=== PATIENT | female | born 1990 | race African-American/Black ===

== ENCOUNTER 2018-10-20 23:13 | Emergency (ER) | payer BC, MEDICAID ==
[2018-10-21] MEDS ORDERED: MORPHINE SULFATE IR 15 MG TABLET PO ONE (02:20)
[2018-10-21] MEDS ORDERED: ACETAMINOPHEN 325 MG TABLET PO ONE (02:20)
[2018-10-21] MEDS ORDERED: IBUPROFEN 600 MG TABLET PO ONE (02:20)
[2018-10-21] MEDS ORDERED: SULFAMETHOXAZOLE/TRIMETHOPRIM 800-160 MG TABLET PO ONE (02:20)
--- NOTE | 2018-10-21 02:22 | ER Document Report ---
ED General - General Chief Complaint: Breast Problem Stated Complaint: UNDER ARM PAIN Time Seen by Provider: 10/21/18 00:52 Notes: Patient is a 28-year-old female without chronic medical problems presents with 3 days of progressive worsening swelling and pain to her left axilla as well as 1- 2 days of swelling and pain in her left breast. Describes the left axilla as being a fluctuant area that appears to be an abscess by her report. There is a dull, throbbing, constant pain, worsened by touching the area. She states it has started to drain purulent material in the last 24 hours. Nothing improves or worsens her symptoms. Patient states that she is also concerned about what appears to be a left breast abscess by her report. She notes an area of swelling and pain to the inferior portion of her left breast. No history of similar symptoms to the above. Has not seen her general physician regarding today's concerns. No fever or constitutional symptoms. TRAVEL OUTSIDE OF THE [place] IN LAST 30 DAYS: No - Related Data Allergies/Adverse Reactions: No Known Allergies Allergy (Verified 06/22/16 10:10) Past Medical History - General Information source: Patient - Social History Smoking Status: Never Smoker Frequency of alcohol use: None Drug Abuse: None Family History: Reviewed & Not Pertinent - Past Medical History Cardiac Medical History: Denies: Hx Hypertension, Hx Pulmonary Embolism, Hx Heart Murmur Pulmonary Medical History: Denies: Hx Asthma, Hx Sleep Apnea, Hx Tuberculosis Neurological Medical History: Denies: Hx Cerebrovascular Accident, Hx Seizures Endocrine Medical History: Denies: Hx Hyperthyroidism, Hx Hypothyroidism Renal/ Medical History: Denies: Hx Kidney Stones, Hx Ovarian Cysts, Hx Pelvic Inflammatory Disease Malignancy Medical History: Denies: Hx Breast Cancer, Hx Cervical Cancer, Hx Ovarian Cancer GI Medical History: Denies: Hx Gastroesophageal Reflux Disease, Hx Hiatal Hernia, Hx Ulcer Musculoskeletal Medical History: Denies Hx Fibromyalgia Psychiatric Medical History: Denies: Hx Bipolar Disorder, Hx Depression, Hx Post Traumatic Stress Disorder, Hx Schizophrenia Traumatic Medical History: Denies: Hx Fractures Infectious Medical History: Denies: Hx HIV, Hx MRSA Past Surgical History: Reports: Hx Breast Surgery - LEFT BREAST ABSCESS REMOVAL, Hx Section - x 3 - Immunizations Hx Diphtheria, Pertussis, Tetanus Vaccination: Yes Review of Systems - Review of Systems Notes: Constitutional: Negative for fever. HENT: Negative for sore throat. Eyes: Negative for visual changes. Cardiovascular: Negative for chest pain. Respiratory: Negative for shortness of breath. Gastrointestinal: Negative for abdominal pain, vomiting or diarrhea. Genitourinary: Negative for dysuria. Musculoskeletal: Negative for back pain. Skin: Positive for left axillary abscess Neurological: Negative for headaches, weakness or numbness. 10 point ROS negative except as marked above and in HPI. Physical Exam - Vital signs Vitals: Temp Pulse Resp BP Pulse Ox 99.0 F 106 H 18 104/68 100 10/20/18 23:28 10/20/18 23:28 10/20/18 23:28 10/20/18 23:28 10/20/18 23:28 Interpretation: Tachycardic Notes: PHYSICAL EXAMINATION: GENERAL: Appears moderately uncomfortable but in no acute distress HEAD: Atraumatic, normocephalic. EYES: Pupils equal round and reactive to light, extraocular movements intact, sclera anicteric, conjunctiva are normal. ENT: nares patent, oropharynx clear without exudates. Moderate dry mucous membranes. NECK: Normal range of motion, supple without lymphadenopathy LUNGS: Breath sounds clear to auscultation bilaterally and equal. No wheezes rales or rhonchi. HEART: Regular rate and rhythm without murmurs Breast exam: There is a 2 x 3 centimeter firm, tender, mobile lump in the inferior left breast ABDOMEN: Soft, nontender, normoactive bowel sounds. No guarding, no rebound. No masses appreciated. EXTREMITIES: Normal range of motion, no pitting or edema. No cyanosis. NEUROLOGICAL: No focal neurological deficits. Moves all extremities spontaneo usly and on command. PSYCH: Normal mood, normal affect. SKIN: Warm, Dry, normal turgor, 1 x 1 cm abscess in the left axilla Course - Re-evaluation Re-evalutation: 10/21/18 02:22 Patient presents with a left axillary abscess. This was incised and drained without complication. Patient's been started on trimethoprim sulfamethoxazole. No fever or constitutional symptoms. No indication for labs. Has a history of the same. The patient is also complaining of left breast swelling and pain. There is a firm, mobile, tender 2 x 3 cm lump to the area. No fluctuance. Does not be appear to be immediately consistent with a breast abscess. Will obtain a breast ultrasound to further clarify. 10/21/18 03:40 Breast ultrasound does not provide immediate clarification, broad differential although no drainable component. I have informed the patient of the ultrasound findings, need for outpatient follow-up for consideration of biopsy and or mammography. At this time will discharge with return precautions and follow-up recommendations. Verbal discharge instructions given a the bedside and opportunity for questions given. Medication warnings reviewed. Patient is in agreement with this plan and has verbalized understanding of return precautions and the need for primary care follow-up in the next 24-72 hours. - Vital Signs Vital signs: Temp Pulse Resp BP Pulse Ox 99.0 F 106 H 18 104/68 100 10/20/18 23:28 10/20/18 23:28 10/20/18 23:28 10/20/18 23:28 10/20/18 23:28 - Diagnostic Test Radiology reviewed: Reports reviewed Procedures - Incision and Drainage Left axilla Type: Simple Anesthetic type: 1% Lidocaine Blade size: 11 I&D procedure: Betadine prep applied Incision Method: Incision made by scalpel Amount/type of drainage: 5 cc purulent drainage Discharge - Discharge Clinical Impression: Abscess of left axilla, Left breast mass Condition: Good Disposition: HOME, SELF-CARE Additional Instructions: You were seen for an abscess that required drainage. Please clean this area with soap and water twice daily and apply a topical antibiotic. Dress the area after each cleaning. Please return if you develop fever, vomiting, the pain at the site worsens, you notice spreading redness from the area, or you have any other symptoms that are concerning to you. I have included the report from your ultrasound today. The cause of swelling in your breast is uncertain and the ultrasound does not provide a clear cause. You need to follow-up very closely with your outpatient [facility] or general physician for consideration of mammography of your breast and or biopsy of this area. Please do not ignore this area of swelling. Prescriptions: Sulfamethoxazole/Trimethoprim [Bactrim Ds Tablet] 2 tab PO BID #28 tablet Referrals: MELE HUTCHINS MD [Primary Care Provider] - Follow up tomorrow
--- NOTE | 2018-10-21 03:27 | RADIOLOGY REPORT (SQ) ---
EXAM DESCRIPTION: US BREAST UNILATERAL LIMITED COMPLETED DATE/TME: 10/21/2018 02:19 CLINICAL HISTORY: 28 years Female, left breast swelling, pain Comparison: None. LIMITATIONS: None. FINDINGS: Targeted sonogram in the area of palpable abnormality, 6:00 position of the left breast 1-2 cm from the nipple demonstrates a 3.6 x 1.8 x 4.3 cm hypoechoic heterogeneous poorly defined lesion with mild vascularity. No drainable component discerned. IMPRESSION: Indeterminate 4.3 cm lesion of the left breast corresponds to palpable abnormality. Differential etiologies include infectious, inflammatory, and neoplastic processes. If puerperal mastitis is clinically suspected, consider punch biopsy to exclude inflammatory carcinoma if symptoms persist after a two week course of appropriate antibiotics. Else, bilateral diagnostic mammogram recommended.
[2018-10-21 03:56] VITALS: BP 123/75
== END 2018-10-21 03:56 | disposition home or self-care (01) ==
LOC: ER 23:13
DX: L02.412 Cutaneous abscess of left axilla (principal); N63.0 Unspecified lump in unspecified breast; N64.4 Mastodynia
CPT/HCPCS: 76642; 99283

== ENCOUNTER 2019-07-24 15:28 | Emergency (ER) | payer BC, MEDICAID ==
--- NOTE | 2019-07-24 16:07 | ER Document Report ---
ED Medical Screen (RME) - General Chief Complaint: Breathing Difficulty Stated Complaint: DIFFICULTY BREATHING Time Seen by Provider: 07/24/19 16:05 Mode of Arrival: Wheelchair Information source: Patient Notes: Patient presents complaining of right-sided chest pain for the past 3 days with shortness of breath that started today. Patient states pain initially started to the right thoracic area and radiated around to the right side of her chest. Patient reports mild cough. No significant medical history. No family history of early cardiac disease. I have greeted and performed a rapid initial assessment of this patient. A comprehensive ED assessment and evaluation of the patient, analysis of test results and completion of the medical decision making process will be conducted by additional ED providers. TRAVEL OUTSIDE OF THE [place] IN LAST 30 DAYS: No - Related Data Allergies/Adverse Reactions: No Known Allergies Allergy (Verified 07/24/19 16:02) Past Medical History - Past Medical History Cardiac Medical History: Denies: Hx Hypertension, Hx Pulmonary Embolism, Hx Heart Murmur Pulmonary Medical History: Denies: Hx Asthma, Hx Sleep Apnea, Hx Tuberculosis Neurological Medical History: Denies: Hx Cerebrovascular Accident, Hx Seizures Endocrine Medical History: Denies: Hx Hyperthyroidism, Hx Hypothyroidism Renal/ Medical History: Denies: Hx Kidney Stones, Hx Ovarian Cysts, Hx Pelvic Inflammatory Disease Malignancy Medical History: Denies: Hx Breast Cancer, Hx Cervical Cancer, Hx Ovarian Cancer GI Medical History: Denies: Hx Gastroesophageal Reflux Disease, Hx Hiatal Hernia, Hx Ulcer Musculoskeltal Medical History: Denies Hx Fibromyalgia Psychiatric Medical History: Denies: Hx Bipolar Disorder, Hx Depression, Hx Post Traumatic Stress Disorder, Hx Schizophrenia Traumatic Medical History: Denies: Hx Fractures Infectious Medical History: Denies: Hx HIV, Hx MRSA Past Surgical History: Reports: Hx Breast Surgery - LEFT BREAST ABSCESS REMOVAL, Hx Section - x 3 - Immunizations Hx Diphtheria, Pertussis, Tetanus Vaccination: Yes Physical Exam - Vital signs Vitals: Temp Pulse Resp BP Pulse Ox 98.4 F 89 18 127/64 H 99 07/24/19 15:51 07/24/19 15:51 07/24/19 15:51 07/24/19 15:51 07/24/19 15:51 - General General appearance: Alert Notes: Right lower anterior rib tenderness pain with movement, tenderness increases with deep inspiration, breath sounds clear Course - Vital Signs Vital signs: Temp Pulse Resp BP Pulse Ox 98.4 F 89 18 127/64 H 99 07/24/19 15:51 07/24/19 15:51 07/24/19 15:51 07/24/19 15:51 07/24/19 15:51
--- NOTE | 2019-07-24 16:30 | RADIOLOGY REPORT (SQ) ---
EXAM DESCRIPTION: CHEST 2 VIEWS COMPLETED DATE/TIME: 07/24/2019 4:17 pm REASON FOR STUDY: R side cp COMPARISON: 06/01/2013 EXAM PARAMETERS: NUMBER OF VIEWS: two views TECHNIQUE: Digital Frontal and Lateral radiographic views of the chest acquired. RADIATION DOSE: NA LIMITATIONS: none FINDINGS: LUNGS AND PLEURA: There is airspace disease in the right lower lobe consistent with pneumo radames. Lung osborne are otherwise clear. MEDIASTINUM AND HILAR STRUCTURES: No masses or contour abnormalities. HEART AND VASCULAR STRUCTURES: Heart normal size. No evidence for failure. BONES: No acute findings. HARDWARE: None in the chest. OTHER: No other significant finding. IMPRESSION: Right lower lobe infiltrate consistent with pneumonia. TECHNICAL DOCUMENTATION: JOB ID: [id number] [employer]- All Rights Reserved Reading location - IP/workstation name: [email or web address]
[2019-07-24] MEDS ORDERED: CEFTRIAXONE 1 GM/D5W RTU 1 GM/50 ML RTUPB IV ONE (16:40)
[2019-07-24] MEDS ORDERED: IPRATROPIUM/ALBUTEROL 0.5-2.5 MG/3 ML AMPUL NEB ONE (16:44)
[2019-07-24 17:09] LABS: ABSOLUTE EOSINOPHILS # (AUTO) 0.1 10^3/uL (0.0-0.6); ABSOLUTE LYMPHOCYTES (AUTO) 1.6 10^3/uL (0.5-4.7); ABSOLUTE MONOCYTES (AUTO) 0.9 10^3/uL (0.1-1.4); ABSOLUTE NEUT (AUTO) 8.9 10^3/uL (1.7-8.2); BASOPHILS % (AUTO) 0.2 % (0-2); EOSINOPHILS % (AUTO) 0.8 % (0-6); HEMATOCRIT 31.5 % (36.0-47.0); HEMOGLOBIN 9.9 g/dL (12.0-15.5); LYMPHOCYTES % (AUTO) 13.9 % (13-45); MEAN CORPUSCULAR HEMOGLOBIN 22.7 pg (27.0-33.4); MEAN CORPUSCULAR HGB CONC 31.4 g/dL (32.0-36.0); MEAN CORPUSCULAR VOLUME 73 fl (80-97); MONOCYTES % (AUTO) 7.7 % (3-13); PLATELET COUNT 320 10^3/uL (150-450); RED BLOOD COUNT 4.34 10^6/uL (3.72-5.28); RED CELL DISTRIBUTION WIDTH 18.5 % (11.5-14.0); SEGMENTED NEUTROPHILS % (AUTO) 77.4 % (42-78); TOTAL CELLS COUNTED % (AUTO) 100 %; WHITE BLOOD COUNT 11.5 10^3/uL (4.0-10.5)
[2019-07-24 17:28] LABS: ALKALINE PHOSPHATASE 67 U/L (38-126); ANION GAP 9 (5-19); ASPARTATE AMINO TRANSFERASE 27 U/L (14-36); BILIRUBIN,DIRECT 0.1 mg/dL (0.0-0.4); BILIRUBIN,TOTAL 0.3 mg/dL (0.2-1.3); BLOOD UREA NITROGEN 14 mg/dL (7-20); CALCIUM 9.2 mg/dL (8.4-10.2); CARBON DIOXIDE 25 mmol/L (22-30); CHLORIDE 107 mmol/L (98-107); GLUCOSE 108 mg/dL (75-110); POTASSIUM 4.1 mmol/L (3.6-5.0); TOTAL PROTEIN 7.5 g/dL (6.3-8.2)
[2019-07-24 17:58] LABS: APPEARANCE,URINE SLIGHTLY-CLOUDY; BILIRUBIN,URINE NEGATIVE (NEGATIVE); GLUCOSE, URINE NEGATIVE (NEGATIVE); KETONES,URINE NEGATIVE (NEGATIVE); PROTEIN,URINE 30 mg/dL (NEGATIVE); URINE SPECIFIC GRAVITY 1.036
[2019-07-24 18:00] LABS: COLOR,URINE DARK YELLOW
--- NOTE | 2019-07-24 18:59 | EKG REPORT ---
SEVERITY:- NORMAL ECG - SINUS RHYTHM : Confirmed by: Yu Saldivar MD 24-Jul-2019 18:58:49
[2019-07-24] MEDS ORDERED: NORMAL SALINE 1000 ML 1,000 ML IV ONE (19:45)
[2019-07-24] MEDS ORDERED: KETOROLAC TROMETHAMINE INJ/PF 30 MG/1 ML SDV IV ONE (19:45)
[2019-07-24] MEDS ORDERED: KETOROLAC TROMETHAMINE INJ/PF 30 MG/1 ML SDV ONE (19:47)
[2019-07-24] MEDS ORDERED: HYDROCODONE/ACETAMINOPHEN 5-325 MG TABLET PO ONE (19:51)
--- NOTE | 2019-07-24 19:55 | ER Document Report ---
ED Respiratory Problem - General Chief Complaint: Breathing Difficulty Stated Complaint: DIFFICULTY BREATHING Time Seen by Provider: 07/24/19 16:05 Mode of Arrival: Wheelchair Information source: Patient Notes: 29-year-old female presented to ED for right-sided lung pain for the last 3 days. She states she has been coughing for a lot longer than that but she has had shortness of breath and pain for the last 3 days. She states the pain is in the right thoracic area that wraps around to the front of her lung. She states she does not have any medical history and her family does not have any cardiac history. She states she has had a mild cough that is gotten worse and she has become more and more short of breath. She states she is having pain when she lays down on her right thoracic area. She states she cannot take deep breaths due to the pain. TRAVEL OUTSIDE OF THE [place] IN LAST 30 DAYS: No - HPI Patient complains to provider of: Cough, Other - Right thoracic front and back pain Onset: Other - Cough is been for a while pain has been for 3 days Duration: Worse/persistent Initiating Event: URI - Cough and congestion Quality of pain: Sharp Severity: Severe Pain Level: 5 Context: Smoker Short of Breath: Moderate Chest pain/discomfort: Right Cough: Nonproductive Sputum amount: None Associated symptoms: Congestion, Cough, PND, Runny nose, Short of breath, Other - Right lower thoracic and chest pain she already had a x-ray that was positive for right lower lobe pneumonia Worsened by: Deep breath Similar symptoms previously: No Recently seen / treated by doctor: No - Related Data Allergies/Adverse Reactions: No Known Allergies Allergy (Verified 07/24/19 16:02) Past Medical History - General Information source: Patient - Social History Smoking Status: Current Every Day Smoker Cigarette use (# per day): Yes - 10 black in miles a day states she quit a cou ple days ago Chew tobacco use (# tins/day): No Smoking Education Provided: Yes Frequency of alcohol use: None Drug Abuse: None Occupation: [employer] Lives with: Family Family History: Reviewed & Not Pertinent Patient has suicidal ideation: No Patient has homicidal ideation: No - Past Medical History Cardiac Medical History: Reports: None Pulmonary Medical History: Reports: None EENT Medical History: Reports: None Neurological Medical History: Reports: None Endocrine Medical History: Reports: None Renal/ Medical History: Reports: None Malignancy Medical History: Reports: None GI Medical History: Reports: None Musculoskeletal Medical History: Reports None Skin Medical History: Reports None Psychiatric Medical History: Reports: None Traumatic Medical History: Reports: None Infectious Medical History: Reports: None Past Surgical History: Reports: Hx Breast Surgery - LEFT BREAST ABSCESS REMOVAL, Hx Section - x 3 - Immunizations Hx Diphtheria, Pertussis, Tetanus Vaccination: Yes Review of Systems - Review of Systems Constitutional: No symptoms reported, Recent illness EENT: Nose congestion, Nose discharge, Sinus discharge Cardiovascular: Chest pain - Right lower chest and thoracic area Respiratory: Cough, Hurts to breathe Gastrointestinal: No symptoms reported Genitourinary: No symptoms reported Female Genitourinary: No symptoms reported Musculoskeletal: No symptoms reported Skin: No symptoms reported Hematologic/Lymphatic: No symptoms reported Neurological/Psychological: No symptoms reported Physical Exam - Vital signs Vitals: Temp Pulse Resp BP Pulse Ox 98.4 F 89 18 127/64 H 99 07/24/19 15:51 07/24/19 15:51 07/24/19 15:51 07/24/19 15:51 07/24/19 15:51 Interpretation: Normal - General General appearance: Appears well, Alert - HEENT Head: Normocephalic, Atraumatic Eyes: Normal Pupils: PERRL Ears: Normal External canal: Normal Tympanic membrane: Normal Sinus: Normal Nasal: Swelling, Clear rhinorrhea Mouth/Lips: Normal Mucous membranes: Normal Pharynx: Normal Neck: Normal - Respiratory Respiratory status: Other - Intermittent panic attacks at this time she is tachypneic otherwise she is not tachypneic Chest status: Tender - Right lower chest, Pain with cough, Pain with deep benji athing Breath sounds: Productive cough Chest palpation: Normal - Cardiovascular Rhythm: Regular Heart sounds: Normal auscultation Murmur: No - Abdominal Inspection: Normal Distension: No distension Bowel sounds: Normal Tenderness: Nontender Organomegaly: No organomegaly - Back Back: Normal, Nontender - Extremities General upper extremity: Normal inspection, Nontender, Normal color, Normal ROM, Normal temperature General lower extremity: Normal inspection, Nontender, Normal color, Normal ROM, Normal temperature, Normal weight bearing. No: Angel's sign - Neurological Neuro grossly intact: Yes Cognition: Normal Orientation: AAOx4 Deaver Coma Scale Eye Opening: Spontaneous Olvin Coma Scale Verbal: Oriented Olvin Coma Scale Motor: Obeys Commands Deaver Coma Scale Total: 15 Speech: Normal Motor strength normal: LUE, RUE, LLE, RLE Sensory: Normal - Psychological Associated symptoms: Normal affect, Normal mood - Skin Skin Temperature: Warm Skin Moisture: Dry Skin Color: Normal Course - Re-evaluation Re-evalutation: 07/25/19 01:55 Dr. oscar was consulted when I first examined the patient due to the diagnosis of pneumonia on the x-rays. Patient had already been treated with Rocephin she agreed that the patient could be given azithromycin and discharged home. Patient stated she was having so much pain she was medicated with Toradol and a Lead before discharge due to her high specific gravity she was given a liter of fluid before discharge. Before discharge patient stated she was feeling much more comfortable. She was instructed on use of incentive spirometry and instructed to please follow-up with her primary care doctor. She was also given her first dose of azithromycin. Patient verbalized understanding of need to follow-up with your doctor or to return to the ED for any increase in symptoms. - Vital Signs Vital signs: Temp Pulse Resp BP Pulse Ox 98.6 F 85 16 165/76 H 100 07/24/19 20:56 07/24/19 20:56 07/24/19 20:56 07/24/19 20:56 07/24/19 20:01 - Laboratory Result Diagrams: 07/24/19 16:30 07/24/19 16:30 Laboratory results interpreted by me: 07/24/19 07/24/19 16:30 16:30 WBC 11.5 H Hgb 9.9 L Hct 31.5 L MCV 73 L MCH 22.7 L MCHC 31.4 L RDW 18.5 H Absolute Neuts (auto) 8.9 H Urine Protein 30 H Urine Urobilinogen 4.0 H - Diagnostic Test Radiology reviewed: Image reviewed, Reports reviewed Discharge - Discharge Clinical Impression: Right lower lobe pneumonia Qualifiers: Pneumonia type: due to unspecified organism Qualified Code(s): J18.1 - Lobar pneumonia, unspecified organism Condition: Stable Disposition: HOME, SELF-CARE Instructions: Family Physicians / Practices Additional Instructions: PNEUMONIA: Your examination indicates that you have pneumonia. This is an infection of the lung tissue, usually caused by bacteria or a virus. Symptoms include cough, fever, shaking chills, chest pain, shortness of breath, and coughing up bloody sputum. Treatment for bacterial pneumonia includes rest, antibiotics for 10 to 14 days, increasing your clear liquid intake, a cool mist humidifier at your bedside, and fever medication. Often, a repeat chest X-ray is performed in a few weeks--even if you feel better--to ascertain whether the infection has completely resolved and no underlying lung problem is present. You should call the physician if you develop persistent vomiting, high fever that does not respond to fever medication, increasing shortness of breath, confusion, or lethargy. Also, failure to improve within two to three days is an indication for re-examination. ROCEPHIN: You have been given an injection of an antibiotic called Rocephin (ceftriaxone). Sometimes the injection must be combined with antibiotic pills. For some infections, such as an uncomplicated ear infection, Rocephin provides all the antibiotic that's needed. The antibiotic will be in your body for about two days. For serious infections, we usually repeat doses of Rocephin daily. Side effects are very unusual following a shot. Women may develop vaginal yeast infections, and babies can get yeast (thrush) in the mouth following the use of antibiotics. Contact your physician if you have symptoms with this medication. Allergy to this antibiotic can result in hives, wheezing, faintness, or itching. If symptoms of allergy occur, call the doctor at once. AZITHROMYCIN: Azithromycin (Zithromax) is a broad spectrum antibiotic in the same class as erythromycin. It can treat a variety of bacterial infections, but is most frequently used for respiratory infections. Azithromycin is extremely long-lasting. It accumulates in body tissues and continues to kill bacteria for many days. In order to improve absorption, Azithromycin should be taken at least one hour before or two hours after a meal. It does not have the same strong tendency to upset the stomach as erythromycin and is usually very well tolerated. Patients who have had a rash or other true allergic reactions to erythromycin should not take this medication. Call if you develop gastrointestinal distress, severe diarrhea, rash, hives, itching, or shortness of breath. USE OF ACETAMINOPHEN (Tylenol): Acetaminophen may be taken for pain relief or fever control. It's much safer than aspirin, offering a wider range of "safe" dosages. It is safe during . Some brand names are Tylenol, Panadol, Datril, Anacin 3, Tempra, and Liquiprin. Acetaminophen can be repeated every four hours. The following are maximum recommended dosages: WEIGHT Dose Drops Elixir Chewable(80mg) (LBS.) drprs=droppers tsp=teaspoon 6 40 mg 0.4 ml (1/2) 6-11 80 mg 0.8 ml (full) tsp 1 tab 12-16 120 mg 1 1/2 drprs 3/4 tsp 1 1/2 tabs 17-23 160 mg 2 drprs 1 tsp 2 tabs 24-30 240 mg 3 drprs 1 1/2 tsp 3 tabs 30-35 320 mg 2 tsp 4 tabs 36-41 360 mg 2 1/4 tsp 4 1/2 tabs 42-47 400 mg 2 1/2 tsp 5 tabs 48-53 480 mg 3 tsp 6 tabs 54-59 520 mg 3 1/4 tsp 6 1/2 tabs 60-64 560 mg 3 1/2 tsp 7 tabs 65-70 600 mg 3 3/4 tsp 7 1/2 tabs 71-76 640 mg 4 tsp 8 tabs 77-82 720 mg 4 1/2 tsp 9 tabs 83-88 800 mg 5 tsp 10 tabs >89 pounds or adults 650 mg to 900 mg Acetaminophen can be repeated every four hours. Maximum dose not to exceed 4000 mg a day. These maximum recommended dosages are slightly higher than the dosages written on the product container, but these dosages are very safe and below the toxic dosage for acetaminophen. Toradol Injection You have been given an injection of ketorolac tromethamine (Toradol). This is an excellent, safe drug for pain control. It also has potent antiinflammatory action. You should have significant pain relief within about one hour. Toradol is not addicting and is non-sedating. It does not interfere with driving or work. Call or return if you develop itching, hives, shortness of breath, or rash. Oral Narcotic Medication You have been given a Lead for pain control. This medication is a narcotic. It's best taken with food, as nausea can result if taken on an empty stomach. Don't operate machinery or drive within six hours of taking this medication. Do not combine this medicine with alcohol, or with any medication which can cause sedation (such as cold tablets or sleeping pills) unless you get permission from the physician. Narcotics tend to cause constipation. If possible, drink plenty of fluids and eat a diet high in fiber and fruits. FOLLOW-UP CARE: If you have been referred to a physician for follow-up care, call the physici ans office for an appointment as you were instructed or within the next two days. If you experience worsening or a significant change in your symptoms, notify the physician immediately or return to the Emergency Department at any time for re-evaluation. Prescriptions: Azithromycin [Zithromax] 250 mg PO DAILY #4 tablet Forms: Smoking Cessation Education, Elevated Blood Pressure
[2019-07-24] MEDS ORDERED: AZITHROMYCIN 250 MG TABLET PO ONE (20:06)
[2019-07-24 20:58] VITALS: BP 165/76
== END 2019-07-24 20:56 | disposition home or self-care (01) ==
LOC: ER 15:28
DX: J18.1 Lobar pneumonia, unspecified organism (principal); R05 Cough; R06.02 Shortness of breath; M54.6 Pain in thoracic spine; R09.82 Postnasal drip; R07.1 Chest pain on breathing; J34.89 Other specified disorders of nose and nasal sinuses; F41.0 Panic disorder [episodic paroxysmal anxiety]
CPT/HCPCS: 93005; 36415; 87040; 83690; 84703; 85025; 80053; 81001; 84484; 71046; 93010; J7030; J0696; J7620; 94640; 96361; 96365; 96375; 99285; J1885